=== PATIENT | female | born 1955 | race African-American/Black ===

== ENCOUNTER 2022-01-31 21:50 | Inpatient (IN) | payer OTHER, MEDICARE ==
[~2022-01-31] VITALS: Ht 165.1 cm; Wt 106.6 kg
[2022-01-31] MEDS ORDERED: PIPERACILLIN/TAZ 3.375G PREMIX 50 ML IV ONE (22:30)
[2022-01-31] MEDS ORDERED: VANCOMYCIN 1G PREMIX 200 ML IV ONE (22:30)
[2022-01-31] MEDS ORDERED: SODIUM CHLORIDE 0.9% 1000ML BAG (SEPSIS BOLUS) IV ONE (22:30)
[2022-02-01] MEDS ORDERED: ACETAMINOPHEN 325MG TABLET PO NR (00:15)
[2022-02-01] MEDS ORDERED: DEXAMETHASONE 4MG/ML 1ML VIAL IV ONE (02:00)
[2022-02-01 04:22] LABS: BASOPHILS % 0.3 % (0.0-2.0); CHLORIDE 103 mEq/L (98-107); EOSINOPHILS % 0.6 % (0.0-5.0); HEMATOCRIT. 30.1 % (36.0-48.0); HEMOGLOBIN. 9.9 g/dL (12.0-16.0); LYMPHOCYTES % 13.2 % (20.0-50.0); MEAN CORPUSCULAR HEMOGLOBIN 34.3 pg (28.0-32.0); MONOCYTES % 13.8 % (2.0-8.0); NEUTROPHILS % 72.1 % (40.0-76.0); PLATELET 270 x1000/uL (130-400); RED BLOOD CELL COUNT 2.89 mill/uL (4.2-5.4)
[2022-02-01 07:16] LABS: INR 2.2; PROTHROMBIN TIME 21.9 sec (9.6-11.0)
[2022-02-01] MEDS ORDERED: DEXAMETHASONE 10 MG/ML VIAL IV NR (12:45)
[2022-02-01] MEDS ORDERED: ACETAMINOPHEN 325MG TABLET PO PRN (13:00)
[2022-02-01] MEDS ORDERED: KCL 10MEQ/50ML PREMIX 50 ML IV NR (13:00)
[2022-02-01] MEDS ORDERED: ALBUTEROL 6.7GM HFA INHALER ORI PRN (13:00)
[2022-02-01] MEDS ORDERED: CEFTRIAXONE 1 G PREMIX 50 ML IV NR (13:00)
[2022-02-01] MEDS ORDERED: GUAIFENESIN 200MG/10ML SUGAR FREE UDC PO PRN (13:00)
[2022-02-01] MEDS ORDERED: DOCUSATE SODIUM 100MG CAPSULE PO PRN (13:00)
[2022-02-01] MEDS ORDERED: ONDANSETRON HCL 4MG/2ML INJ IV PRN (13:00)
[2022-02-01] MEDS ORDERED: TRAMADOL 50MG TABLET PO PRN (13:00)
[2022-02-01] MEDS ORDERED: AZITHROMYCIN 500 MG in DEXT 5% WATER 250 ML IV SCH (13:00)
[2022-02-01] MEDS ORDERED: CEFTRIAXONE 1 G PREMIX 50 ML IV SCH (13:00)
[2022-02-01] MEDS ORDERED: MAGNESIUM/ALUMINUM HYDROXIDE/SIMETHICONE 30ML UDC PO PRN (13:00)
[2022-02-01] MEDS ORDERED: AZITHROMYCIN 500MG/250ML 250 ML IV NR (13:15)
[2022-02-01] MEDS ORDERED: NALOXONE HCL 0.4MG/ML VIAL IV PRN (13:15)
[2022-02-01] MEDS: SODIUM CHLORIDE 0.9% 1,000 ML IV SCH (13:33)
[2022-02-01 16:16] LABS: HEPATITIS B SURFACE ANTIGEN NEGATIVE
[2022-02-01] MEDS: PANTOPRAZOLE SODIUM 40 MG/VIAL IV SCH (17:53)
[2022-02-01 18:46] LABS: TOTAL IRON BINDING CAPACITY 68 ug/dL (250-450)
[2022-02-01 19:35] LABS: FERRITIN 1124 ng/mL (10-291)
[2022-02-01 20:29] LABS: VITAMIN B12 SERUM >2000 pg/mL pg/mL (211-911)
[2022-02-01 20:30] VITALS: BP 106/64
[2022-02-02] MEDS: SODIUM CHLORIDE 0.9% 1,000 ML IV SCH ×2 (02:20→14:49)
[2022-02-02 06:54] LABS: CHLORIDE 105 mEq/L (98-107)
[2022-02-02 07:04] LABS: HDL CHOLESTEROL 13 mg/dL (40-59); LDL CHOLESTEROL 81 mg/dL (5-100)
[2022-02-02 08:00] VITALS: BP 113/77
[2022-02-02] MEDS ORDERED: AZITHROMYCIN 500 MG in DEXT 5% WATER 250 ML IV SCH (09:00)
[2022-02-02 09:23] LABS: INR 2.9; PROTHROMBIN TIME 28.6 sec (9.6-11.0)
[2022-02-02] MEDS: PANTOPRAZOLE SODIUM 40 MG/VIAL IV SCH ×2 (09:27→17:26)
[2022-02-02] MEDS: DEXAMETHASONE 4MG/ML 1ML VIAL IV SCH (09:27)
[2022-02-02] MEDS: CEFTRIAXONE 1,000 MG in DEXTROSE 5% WATER 50 ML IV SCH (10:48)
[2022-02-02 10:58] LABS: BASOPHILS % 0.4 % (0.0-2.0); LYMPHOCYTES % 17.1 % (20.0-50.0); MEAN CORPUSCULAR HEMOGLOBIN 35.4 pg (28.0-32.0); MEAN CORPUSCULAR VOLUME 103.3 fL (81.0-99.0); MONOCYTES % 3.3 % (2.0-8.0); NEUTROPHILS % 79.2 % (40.0-76.0); RED BLOOD CELL COUNT 3.38 mill/uL (4.2-5.4); RED CELL DISTRIBUTION WIDTH 15.8 % (11.6-14.6)
[2022-02-02] MEDS: PHYTONADIONE 10MG/ML AMP SUBCUT SCH (11:31)
[2022-02-02 11:52] LABS: PLATELET 341 x1000/uL (130-400)
[2022-02-02 12:00] VITALS: BP 110/66
[2022-02-02] MEDS ORDERED: GUAIFENESIN-DM 200MG-20MG/10ML UDC PO PRN (15:00)
[2022-02-02] MEDS: BENZONATATE 100MG CAPSULE PO SCH ×2 (15:24→22:56)
[2022-02-02 16:00] VITALS: BP 121/67
[2022-02-03] MEDS: BENZONATATE 100MG CAPSULE PO SCH ×3 (06:35→20:39)
[2022-02-03] MEDS: SODIUM CHLORIDE 0.9% 1,000 ML IV SCH ×2 (06:36→18:38)
[2022-02-03 06:46] LABS: HEMATOCRIT. 31.7 % (36.0-48.0); HEMOGLOBIN. 10.7 g/dL (12.0-16.0); MEAN CORPUSCULAR HEMOGLOBIN 34.8 pg (28.0-32.0); MEAN CORPUSCULAR VOLUME 103.4 fL (81.0-99.0); RED BLOOD CELL COUNT 3.07 mill/uL (4.2-5.4); RED CELL DISTRIBUTION WIDTH 16.2 % (11.6-14.6)
[2022-02-03 06:53] LABS: CHLORIDE 105 mEq/L (98-107)
[2022-02-03 07:08] LABS: INR 2.2; PROTHROMBIN TIME 22.6 sec (9.6-11.0)
[2022-02-03 08:00] VITALS: BP 132/87
[2022-02-03] MEDS ORDERED: POTASSIUM CHLORIDE 20MEQ TABLET SR PO NR (08:30)
[2022-02-03] MEDS: CEFTRIAXONE 1,000 MG in DEXTROSE 5% WATER 50 ML IV SCH (09:40)
[2022-02-03] MEDS: PANTOPRAZOLE SODIUM 40 MG/VIAL IV SCH ×2 (09:40→17:01)
[2022-02-03] MEDS: DEXAMETHASONE 4MG/ML 1ML VIAL IV SCH (09:40)
[2022-02-03] MEDS: PHYTONADIONE 10MG/ML AMP SUBCUT SCH (09:41)
[2022-02-03 09:54] LABS: PLATELET 275 x1000/uL (130-400)
[2022-02-03 09:58] LABS: PLATELET ESTIMATE NORMAL
[2022-02-03 12:00] VITALS: BP 100/58
[2022-02-03] MEDS ORDERED: POTASSIUM CHLORIDE 20MEQ TABLET SR PO ONE (12:45)
[2022-02-03] MEDS: AZITHROMYCIN 500 MG in DEXT 5% WATER 250 ML IV SCH (15:30)
[2022-02-03 16:00] VITALS: BP 97/58
[2022-02-03 20:00] VITALS: BP 99/72
[2022-02-04] VITALS: BP 100/70
[2022-02-04 04:00] VITALS: BP 100/70
[2022-02-04] MEDS: SODIUM CHLORIDE 0.9% 1,000 ML IV SCH ×2 (05:25→17:12)
[2022-02-04] MEDS: BENZONATATE 100MG CAPSULE PO SCH ×3 (06:00→23:23)
[2022-02-04 08:00] VITALS: BP 126/67
[2022-02-04 08:04] LABS: HEMATOCRIT. 32.7 % (36.0-48.0); HEMOGLOBIN. 10.8 g/dL (12.0-16.0); MEAN CORPUSCULAR HEMOGLOBIN 34.2 pg (28.0-32.0); MEAN CORPUSCULAR VOLUME 103.5 fL (81.0-99.0); MEAN PLATELET VOLUME 9.3 fl (7.4-10.4); PLATELET 261 x1000/uL (130-400); RED BLOOD CELL COUNT 3.16 mill/uL (4.2-5.4); RED CELL DISTRIBUTION WIDTH 16.3 % (11.6-14.6)
[2022-02-04 08:11] LABS: CHLORIDE 106 mEq/L (98-107)
[2022-02-04 08:14] LABS: INR 1.6; PROTHROMBIN TIME 16.7 sec (9.6-11.0)
[2022-02-04] MEDS: THIAMINE HCL 100MG TABLET PO SCH (08:58)
[2022-02-04] MEDS: DEXAMETHASONE 4MG/ML 1ML VIAL IV SCH (08:58)
[2022-02-04] MEDS: FOLIC ACID 1MG TABLET PO SCH (08:58)
[2022-02-04] MEDS: PANTOPRAZOLE SODIUM 40 MG/VIAL IV SCH ×2 (08:58→17:12)
[2022-02-04] MEDS: PHYTONADIONE 10MG/ML AMP SUBCUT SCH (09:00)
[2022-02-04] MEDS: CEFTRIAXONE 1,000 MG in DEXTROSE 5% WATER 50 ML IV SCH (09:07)
[2022-02-04 10:00] VITALS: BP 116/61
[2022-02-04] MEDS: AZITHROMYCIN 500 MG in DEXT 5% WATER 250 ML IV SCH (12:19)
[2022-02-04 13:17] LABS: PLATELET ESTIMATE NORMAL
[2022-02-04 16:49] VITALS: BP 122/68
[2022-02-04 20:00] VITALS: BP 98/64
[2022-02-04] MEDS: AMLODIPINE 5MG TABLET PO SCH (20:41)
[2022-02-05] VITALS: BP_SYST 100
[2022-02-05 04:00] VITALS: BP_SYST 100
[2022-02-05 06:12] LABS: HEMATOCRIT. 30.2 % (36.0-48.0); HEMOGLOBIN. 10.1 g/dL (12.0-16.0); MEAN CORPUSCULAR HEMOGLOBIN 34.3 pg (28.0-32.0); MEAN PLATELET VOLUME 9.2 fl (7.4-10.4); PLATELET 219 x1000/uL (130-400); RED BLOOD CELL COUNT 2.96 mill/uL (4.2-5.4); RED CELL DISTRIBUTION WIDTH 15.8 % (11.6-14.6)
[2022-02-05 06:17] LABS: INR 1.6; PROTHROMBIN TIME 16.1 sec (9.6-11.0)
[2022-02-05 06:45] LABS: CHLORIDE 107 mEq/L (98-107)
[2022-02-05] MEDS: BENZONATATE 100MG CAPSULE PO SCH ×3 (07:27→22:12)
[2022-02-05 08:00] VITALS: BP 131/75
[2022-02-05] MEDS: PANTOPRAZOLE SODIUM 40 MG/VIAL IV SCH ×2 (08:55→18:21)
[2022-02-05] MEDS: THIAMINE HCL 100MG TABLET PO SCH (08:55)
[2022-02-05] MEDS: AMLODIPINE 5MG TABLET PO SCH ×2 (08:56→22:12)
[2022-02-05] MEDS: FOLIC ACID 1MG TABLET PO SCH (08:56)
[2022-02-05] MEDS: PHYTONADIONE 10MG/ML AMP SUBCUT SCH (08:56)
[2022-02-05] MEDS: DEXAMETHASONE 4MG/ML 1ML VIAL IV SCH (08:57)
[2022-02-05] MEDS: CEFTRIAXONE 1,000 MG in DEXTROSE 5% WATER 50 ML IV SCH (08:57)
[2022-02-05] MEDS: SODIUM CHLORIDE 0.9% 1,000 ML IV SCH ×2 (10:53→22:13)
[2022-02-05] MEDS: AZITHROMYCIN 500 MG in DEXT 5% WATER 250 ML IV SCH (13:49)
[2022-02-05 16:00] VITALS: BP 126/64
[2022-02-05 20:00] VITALS: BP 122/68
[2022-02-06] VITALS: BP 126/75
[2022-02-06 04:00] VITALS: BP 130/70
[2022-02-06] MEDS: BENZONATATE 100MG CAPSULE PO SCH ×3 (06:14→21:15)
[2022-02-06 07:08] LABS: CHLORIDE 110 mEq/L (98-107)
[2022-02-06 07:39] LABS: HEMATOCRIT. 30.9 % (36.0-48.0); HEMOGLOBIN. 10.3 g/dL (12.0-16.0); MEAN CORPUSCULAR HEMOGLOBIN 34.2 pg (28.0-32.0); MEAN CORPUSCULAR VOLUME 102.9 fL (81.0-99.0); MEAN PLATELET VOLUME 9.5 fl (7.4-10.4); PLATELET 211 x1000/uL (130-400)
[2022-02-06 08:00] VITALS: BP 121/67
[2022-02-06] MEDS: AMLODIPINE 5MG TABLET PO SCH ×2 (10:38→21:00)
[2022-02-06] MEDS: FOLIC ACID 1MG TABLET PO SCH (10:38)
[2022-02-06] MEDS: THIAMINE HCL 100MG TABLET PO SCH (10:38)
[2022-02-06] MEDS: PANTOPRAZOLE SODIUM 40 MG/VIAL IV SCH ×2 (10:39→18:01)
[2022-02-06] MEDS: CEFTRIAXONE 1,000 MG in DEXTROSE 5% WATER 50 ML IV SCH (10:39)
[2022-02-06 12:00] VITALS: BP 120/50
[2022-02-06 13:16] LABS: PLATELET ESTIMATE NORMAL
[2022-02-06] MEDS: SODIUM CHLORIDE 0.9% 1,000 ML IV SCH (13:31)
[2022-02-06] MEDS: LACTOBACILLUS GG CAPSULE PO SCH (13:31)
[2022-02-06 16:00] VITALS: BP 122/68
[2022-02-06 20:00] VITALS: BP 106/60
[2022-02-07] VITALS: BP 117/69
[2022-02-07] MEDS: SODIUM CHLORIDE 0.9% 1,000 ML IV SCH ×2 (01:29→14:12)
[2022-02-07 01:53] LABS: PLATELET ESTIMATE NORMAL
[2022-02-07 04:00] VITALS: BP 107/52
[2022-02-07] MEDS: BENZONATATE 100MG CAPSULE PO SCH ×3 (05:36→22:00)
[2022-02-07 05:57] LABS: HEMATOCRIT. 34.3 % (36.0-48.0); HEMOGLOBIN. 11.4 g/dL (12.0-16.0); INR 1.4; MEAN CORPUSCULAR VOLUME 102.1 fL (81.0-99.0); MEAN PLATELET VOLUME 9.4 fl (7.4-10.4); PLATELET 236 x1000/uL (130-400); PROTHROMBIN TIME 14.9 sec (9.6-11.0); RED BLOOD CELL COUNT 3.36 mill/uL (4.2-5.4); RED CELL DISTRIBUTION WIDTH 16.4 % (11.6-14.6)
[2022-02-07 06:17] LABS: CHLORIDE 107 mEq/L (98-107)
[2022-02-07 07:07] LABS: NUCLEATED RED BLOOD CELLS 1 /100 WBC; PLATELET ESTIMATE NORMAL
[2022-02-07 08:00] VITALS: BP 136/64
[2022-02-07] MEDS ORDERED: POTASSIUM CHLORIDE 20MEQ TABLET SR PO NR (08:30)
[2022-02-07] MEDS: PANTOPRAZOLE SODIUM 40 MG/VIAL IV SCH ×2 (09:00→17:19)
[2022-02-07] MEDS: FOLIC ACID 1MG TABLET PO SCH (09:29)
[2022-02-07] MEDS: LACTOBACILLUS GG CAPSULE PO SCH (09:29)
[2022-02-07] MEDS: THIAMINE HCL 100MG TABLET PO SCH (09:30)
[2022-02-07] MEDS: AMLODIPINE 5MG TABLET PO SCH ×2 (09:30→21:00)
[2022-02-07 12:00] VITALS: BP 111/66
[2022-02-07 16:00] VITALS: BP 123/86
[2022-02-07 20:00] VITALS: BP_SYST 117; BP_SYST 164; BP_DIAS 66; BP_DIAS 80
[2022-02-08] VITALS: BP 127/70
[2022-02-08] MEDS: SODIUM CHLORIDE 0.9% 1,000 ML IV SCH (03:32)
[2022-02-08 04:00] VITALS: BP 123/63
[2022-02-08] MEDS: BENZONATATE 100MG CAPSULE PO SCH ×3 (06:00→21:10)
[2022-02-08 08:00] VITALS: BP 95/42
[2022-02-08 08:28] LABS: CHLORIDE 109 mEq/L (98-107)
[2022-02-08 08:37] LABS: HEMATOCRIT. 32.8 % (36.0-48.0); HEMOGLOBIN. 10.9 g/dL (12.0-16.0); MEAN CORPUSCULAR HEMOGLOBIN 34.2 pg (28.0-32.0); MEAN CORPUSCULAR VOLUME 102.9 fL (81.0-99.0); MEAN PLATELET VOLUME 9.7 fl (7.4-10.4); PLATELET 174 x1000/uL (130-400); RED BLOOD CELL COUNT 3.18 mill/uL (4.2-5.4); RED CELL DISTRIBUTION WIDTH 16.4 % (11.6-14.6)
[2022-02-08] MEDS: AMLODIPINE 5MG TABLET PO SCH ×2 (09:00→21:10)
[2022-02-08] MEDS: PANTOPRAZOLE SODIUM 40 MG/VIAL IV SCH ×2 (09:46→16:52)
[2022-02-08] MEDS: FOLIC ACID 1MG TABLET PO SCH (09:47)
[2022-02-08] MEDS: LACTOBACILLUS GG CAPSULE PO SCH (09:47)
[2022-02-08] MEDS: ENOXAPARIN 40MG/0.4ML SYR SUBCUT SCH (09:48)
[2022-02-08] MEDS: THIAMINE HCL 100MG TABLET PO SCH (09:48)
[2022-02-08 12:00] VITALS: BP 112/68
[2022-02-08 14:04] LABS: NUCLEATED RED BLOOD CELLS 1 /100 WBC
[2022-02-08 14:05] LABS: PLATELET ESTIMATE NORMAL
[2022-02-08] MEDS: LOPERAMIDE HCL 2MG CAPSULE PO PRN (14:15)
[2022-02-08 16:00] VITALS: BP 122/62
[2022-02-08 20:00] VITALS: BP 121/76
[2022-02-09] VITALS: BP 119/68
[2022-02-09 04:00] VITALS: BP 112/66
[2022-02-09] MEDS: BENZONATATE 100MG CAPSULE PO SCH ×3 (06:27→21:26)
[2022-02-09 06:46] LABS: CHLORIDE 111 mEq/L (98-107)
[2022-02-09 06:47] LABS: HEMATOCRIT. 32.5 % (36.0-48.0); HEMOGLOBIN. 10.7 g/dL (12.0-16.0); MEAN CORPUSCULAR HEMOGLOBIN 34.5 pg (28.0-32.0); MEAN CORPUSCULAR VOLUME 104.3 fL (81.0-99.0); MEAN PLATELET VOLUME 10.2 fl (7.4-10.4); PLATELET 167 x1000/uL (130-400); RED BLOOD CELL COUNT 3.11 mill/uL (4.2-5.4); RED CELL DISTRIBUTION WIDTH 17.2 % (11.6-14.6)
[2022-02-09 08:00] VITALS: BP 118/71
[2022-02-09 08:15] LABS: PLATELET ESTIMATE NORMAL
[2022-02-09] MEDS: AMLODIPINE 5MG TABLET PO SCH ×2 (08:58→21:26)
[2022-02-09] MEDS: PANTOPRAZOLE SODIUM 40 MG/VIAL IV SCH ×2 (08:58→16:45)
[2022-02-09] MEDS: LACTOBACILLUS GG CAPSULE PO SCH (08:58)
[2022-02-09] MEDS: FOLIC ACID 1MG TABLET PO SCH (08:58)
[2022-02-09] MEDS: THIAMINE HCL 100MG TABLET PO SCH (08:58)
[2022-02-09] MEDS: ENOXAPARIN 40MG/0.4ML SYR SUBCUT SCH (09:04)
[2022-02-09] MEDS: MEGESTROL ACETATE 400 MG/10 ML UDC PO SCH (09:04)
[2022-02-09 12:00] VITALS: BP 114/68
[2022-02-09 16:00] VITALS: BP 128/71
[2022-02-09] MEDS: LACTULOSE 20G/30ML UDC PO SCH ×2 (16:45→21:26)
[2022-02-09 20:00] VITALS: BP 119/73
[2022-02-09] MEDS: RIFAXIMIN 550 MG TABLET PO SCH (21:26)
[2022-02-10] VITALS: BP 125/66
[2022-02-10 04:00] VITALS: BP 116/68
[2022-02-10] MEDS: BENZONATATE 100MG CAPSULE PO SCH ×3 (05:29→20:26)
[2022-02-10] MEDS: LACTULOSE 20G/30ML UDC PO SCH ×4 (05:29→20:26)
[2022-02-10 08:00] VITALS: BP 126/80
[2022-02-10] MEDS: LACTOBACILLUS GG CAPSULE PO SCH (08:41)
[2022-02-10] MEDS: RIFAXIMIN 550 MG TABLET PO SCH ×2 (08:41→20:26)
[2022-02-10] MEDS: MEGESTROL ACETATE 400 MG/10 ML UDC PO SCH (08:41)
[2022-02-10] MEDS: THIAMINE HCL 100MG TABLET PO SCH (08:42)
[2022-02-10] MEDS: PANTOPRAZOLE SODIUM 40 MG/VIAL IV SCH ×2 (08:42→17:05)
[2022-02-10] MEDS: FOLIC ACID 1MG TABLET PO SCH (08:42)
[2022-02-10] MEDS: AMLODIPINE 5MG TABLET PO SCH ×2 (08:42→20:33)
[2022-02-10] MEDS: ENOXAPARIN 40MG/0.4ML SYR SUBCUT SCH (08:42)
[2022-02-10 12:00] VITALS: BP 112/56
[2022-02-10 16:00] VITALS: BP 131/67
[2022-02-10] MEDS: LOPERAMIDE HCL 2MG CAPSULE PO PRN (17:05)
[2022-02-10 17:28] VITALS: BP 131/67
== END 2022-02-10 23:37 | disposition short-term general hospital (02) | DRG 871 ==
LOC: ER 21:50 → EDBEDREQ 22:50 → 7WST 02-01 01:48 → EDBEDREQSVC 02-01 01:50 → EDBEDREQDT 02-01 01:50 → EDBEDREQTM 02-01 01:50 → EDBEDREQ 02-01 01:50 → ENRESERV 02-01 18:44
PROVIDERS: ADMIT Hospitalist; ATTEND Hospitalist
DX: A41.89 Other specified sepsis (principal); E43 Unspecified severe protein-calorie malnutrition; J12.82 Pneumonia due to coronavirus disease 2019; J96.00 Acute respiratory failure, unspecified whether with hypoxia or hypercapnia; U07.1 COVID-19; D68.4 Acquired coagulation factor deficiency; K75.9 Inflammatory liver disease, unspecified; E87.5 Hyperkalemia; F10.10 Alcohol abuse, uncomplicated; Y90.9 Presence of alcohol in blood, level not specified; K70.30 Alcoholic cirrhosis of liver without ascites; I51.7 Cardiomegaly; E87.6 Hypokalemia; D64.9 Anemia, unspecified; Z87.11 Personal history of peptic ulcer disease; Z68.39 Body mass index [BMI] 39.0-39.9, adult
CPT/HCPCS: 36415; 71045; 76700; 80048; 80053; 80061; 80076; 82105; 82140; 82248; 82270; 82550; 82607; 82728; 82746; 83010; 83540; 83550; 83605; 83880; 84145; 84484; 85025; 85044; 86301; 86705; 86709; 86803; 87340; 87426; 93005; 93970; 97162; 97166; 97530; 99291; A6261; C1893; C9113; C9803; J0456; J0696; J1100; J1650; J2543; J3370; J3430; J3480; J7030; J7060